=== PATIENT | female | born 1950 | race Caucasian/White ===

== ENCOUNTER 2016-12-14 19:24 | Emergency (ER) | payer MEDICARE, OTHER ==
[2016-12-14 20:07] LABS: BILIRUBIN NEGATIVE (NEGATIVE); BLOOD NEGATIVE Ery/uL (NEGATIVE); CLARITY SLIGHTLY HAZY (CLEAR); COLOR YELLOW (YELLOW); GLUCOSE (U) NORMAL (NORMAL); KETONE (U) TRACE mg/dL (NEGATIVE); LEUKOCYTES NEGATIVE Leu/uL (NEGATIVE); NITRITE NEGATIVE (NEGATIVE); PROTEIN NEGATIVE (NEGATIVE); UROBILINOGEN 0.2 mg/dL (0.2-1.0)
[2016-12-14 20:31] LABS: BASOPHIL 0.3 % (0-2); EOSINOPHIL 0.7 % (0-7); HCT 41.8 % (37.0-47.0); HGB 14.8 g/dl (12.5-16.0); LYMPHOCYTE 16.5 % (15-48); MCH 30.7 pg (25.0-31.0); MCHC 35.4 g/dL (32.0-36.0); MCV 86.7 fL (78.0-100.0); MONOCYTE 5.9 % (0-12); MPV 9.5 fL (6.0-9.5); NEUTROPHIL 76.6 % (41-80); PLT 479 K/uL (150-400); RBC 4.82 M/uL (4.20-5.40); WBC 9.2 K/uL (4.0-10.5)
[2016-12-14 20:49] LABS: CREATININE 0.7 mg/dL (0.5-1.0); POTASSIUM 3.4 mmol/L (3.5-5.1)
== END 2016-12-14 22:52 | disposition home or self-care (01) ==
LOC: FER 19:24
PROVIDERS: Nurse Practitioner Family
DX: R10.84 Generalized abdominal pain (principal); R11.0 Nausea; R19.7 Diarrhea, unspecified; R51 Headache; E03.9 Hypothyroidism, unspecified; Z79.899 Other long term (current) drug therapy; Z88.1 Allergy status to other antibiotic agents; Z90.49 Acquired absence of other specified parts of digestive tract
CPT/HCPCS: 36415; 80048; 81003; 85025; 93005; J1885; J2405; J2765